=== PATIENT | female | born 1960 | race Caucasian/White ===

== ENCOUNTER 2019-07-17 10:34 | Outpatient (CLI) | payer BC, MEDICARE ==
--- NOTE | 2019-07-17 15:15 | NM ---
WHOLE BODY BONE SCAN: HISTORY: History of hepatocellular carcinoma RADIOPHARMACEUTICAL: 30.1 mCi technetium 99m-MDP injected intravenously COMPARISON: None CORRELATION: None FINDINGS: There is an obliquely oriented linear area of increased uptake seen involving the right proximal lorelei shavon. There is degenerative activity seen at the sternoclavicular joints, AC joints and feet. IMPRESSION: Obliquely oriented linear region of activity involving the proximal right humerus is susp icious for possible underlying right proximal humerus fracture or metastatic lesion. Dedicated radiographs of the right shoulder are recommended for additional characterization.
== END 2019-07-17 10:35 | disposition home or self-care (01) ==
LOC: NM 10:34
PROVIDERS: ATTEND Internal Medicine Gastroenterology
DX: C22.0 Liver cell carcinoma (principal); M89.8X9 Other specified disorders of bone, unspecified site; B16.2 Acute hepatitis B without delta-agent with hepatic coma; K74.60 Unspecified cirrhosis of liver; M54.9 Dorsalgia, unspecified; M19.90 Unspecified osteoarthritis, unspecified site
CPT/HCPCS: 78306; A9503

== ENCOUNTER 2019-07-21 10:08 | Outpatient (CLI) | payer BC, MEDICARE ==
--- NOTE | 2019-07-21 10:44 | RAD ---
XR Shoulder Rt 3 View STANDARD: 07/21/2019 12:00 AM CLINICAL INDICATION: History of right shoulder myalgia. COMPARISON: None. FINDINGS: Bones: No acute fracture. Glenohumeral joint: Normal alignment. AC joint: There is mild AC joint osteoarthrosis. Visualized lung: Clear. Soft tissues: Within normal limits. IMPRESSION: No acute osseous abnormality.
== END 2019-07-21 10:09 | disposition home or self-care (01) ==
LOC: BICRAD 10:08
PROVIDERS: ATTEND Internal Medicine Gastroenterology
DX: M79.10 Myalgia, unspecified site (principal)

== ENCOUNTER 2019-10-13 07:23 | Outpatient (CLI) | payer MEDICARE, BC ==
--- NOTE | 2019-10-13 09:11 | MRI ---
EXAM: MRI of the abdomen without and with contrast COMPARISON: 06/10/2017, 12/27/2016 HISTORY: Cirrhosis with 2 lesions seen in the liver on prior examination TECHNIQUE: Multiplanar multi sequence MR images were taken of the abdomen without and with IV contras t. FINDINGS: Liver: The liver is nodular consistent with cirrhosis. No focal liver lesions are seen. The previousl y seen 2 lesions are no longer visible and have likely resolved. No abnormal enhancement. No loss of signal is seen on the out of phase images. Mild central intrahepatic biliary dilatation is seen. T here is a recanalized periumbilical vein. Gallbladder: Removed Common bile duct: Prominent measuring 10 mm which is likely a reservoir effect from prior cholecystec jose juan. Adrenal glands: Unremarkable. Kidneys: No hydronephrosis or focal renal lesions. No abnormal areas of enhancement. Spleen: Unremarkable. Pancreas: Unremarkable. No abnormal enhancement. Retroperitoneum: No enlarged lymph nodes Bones: No marrow signal abnormality. IMPRESSION: 1. Cirrhosis with sequela of portal hypertension 2. No suspicious liver lesions identified
[2019-10-13] MEDS ORDERED: Magnevist 469MG/ML 20 ML VIAL ONE (14:26)
== END 2019-10-13 07:24 | disposition home or self-care (01) ==
LOC: BICMRI 07:23
PROVIDERS: ATTEND Internal Medicine Gastroenterology
DX: K74.60 Unspecified cirrhosis of liver (principal); B18.2 Chronic viral hepatitis C; C22.0 Liver cell carcinoma; R93.89 Abnormal findings on diagnostic imaging of other specified body structures; R14.0 Abdominal distension (gaseous); R77.2 Abnormality of alphafetoprotein; M89.8X9 Other specified disorders of bone, unspecified site; M54.9 Dorsalgia, unspecified; G89.29 Other chronic pain; R10.13 Epigastric pain; R10.32 Left lower quadrant pain; R41.0 Disorientation, unspecified; K59.09 Other constipation; M19.90 Unspecified osteoarthritis, unspecified site; K57.30 Diverticulosis of large intestine without perforation or abscess without bleeding; R13.10 Dysphagia, unspecified; R74.8 Abnormal levels of other serum enzymes; R53.83 Other fatigue; Z81.1 Family history of alcohol abuse and dependence; K76.6 Portal hypertension
CPT/HCPCS: 74183; 82565; A9579

== ENCOUNTER 2020-05-05 07:46 | Outpatient (CLI) | payer MEDICARE, BC ==
[2020-05-05] MEDS ORDERED: Magnevist 469MG/ML 20 ML VIAL ONE (13:49)
--- NOTE | 2020-05-05 14:17 | MRI ---
MRI ABDOMEN WITH AND WITHOUT IV CONTRAST: 05/05/20 HISTORY: Cirrhosis of the liver. Left lower quadrant pain. Liver cancer diagnosed in 2017. Hepatitis C and hep atitis D. Status post cholecystectomy. COMPARISON: 10/13/19 and 06/05/19. FINDINGS: Nodular appearance of the liver consistent with cirrhosis is again seen. The previously noted enhanci ng masses in hepatic VIII (about 9 mm) and in hepatic segment (approximately 12 mm) on the previou s exam are not satisfactorily visualized on the current exam. These are likely due to imaging during the different phases of IV contrast administration. A good arterial enhancing sequence is not noted. No definite new lesions however, identified. The patient is post cholecystectomy with prominent common bile duct measuring up to 12 mm likely due to reservoir effect from previous cholecystectomy. The kidneys, spleen, pancreas and adrenal glands a ppear normal. No free fluid or lymphadenopathy is seen. The aorta is of normal caliber. The bone yessi ow signal is normal. Portal vein is patent. The splenic vein is enlarged. There is recanalization of the umbilical vein. IMPRESSION: Limited exam. No definite new lesions are seen in the liver. POS: [facility]
== END 2020-05-05 07:47 | disposition home or self-care (01) ==
LOC: BICMRI 07:46
PROVIDERS: ATTEND Internal Medicine Gastroenterology
DX: K74.60 Unspecified cirrhosis of liver (principal); C22.0 Liver cell carcinoma; R14.0 Abdominal distension (gaseous); R10.9 Unspecified abdominal pain; R93.89 Abnormal findings on diagnostic imaging of other specified body structures; M89.8X9 Other specified disorders of bone, unspecified site; R10.13 Epigastric pain; R10.32 Left lower quadrant pain
CPT/HCPCS: 74183; 82565; A9579

== ENCOUNTER 2020-12-19 07:14 | Outpatient (CLI) | payer MEDICARE, BC ==
[2020-12-19] MEDS ORDERED: Magnevist 469MG/ML 20 ML VIAL ONE (11:09)
== END 2020-12-19 07:15 | disposition home or self-care (01) ==
LOC: BICMRI 07:14
PROVIDERS: ATTEND Internal Medicine Gastroenterology
DX: K74.60 Unspecified cirrhosis of liver (principal); R93.89 Abnormal findings on diagnostic imaging of other specified body structures; K76.6 Portal hypertension
CPT/HCPCS: 74183; A9579

== ENCOUNTER 2021-06-05 15:17 | Emergency (ER) | payer MEDICARE, BC ==
[2021-06-05 16:19] LABS: #Eosinphils 0.1 thou/uL (0.0-0.7); #Lymphocytes 1.4 thou/uL (1.20-3.40); #Monocytes 0.6 thou/uL (0.11-0.59); #Neutrophils 4.1 thou/uL (1.40-6.50); %Basophils 0.2 % (0.0-1.0); %Eosinophils 1.2 % (0.0-10.0); %Lymphocytes 22.8 % (21.0-51.0); %Monocytes 9.7 % (0.0-10.0); %Neutrophils 66.2 % (42.0-75.0); Hemoglobin 16.6 g/dL (12.0-16.0); Mean Corpuscular HGB CONC 34.4 g/dL (32.0-36.0); Mean Corpuscular Hemoglobin 32.3 pg (27.0-31.0); Mean Corpuscular Volume 93.9 fL (78.0-98.0); Mean Platelet Volume 9.8 fL (7.4-10.4); Platelet Count 92 thou/uL (130-400); RBC Distribution Width 11.5 % (11.5-14.5); Red Blood Cell (RBC) Count 5.14 mill/uL (4.20-5.40); White Blood Cell (WBC) Count 6.1 thou/uL (4.8-10.8)
[2021-06-05 16:36] LABS: ALT (SGPT) 62 U/L (8-55); AST (SGOT) 75 U/L (5-34); Albumin 4.1 g/dL (3.4-4.8); Alkaline Phosphatase 100 U/L (40-110); Anion Gap 13 mmol/L (10-20); BUN (Urea Nitrogen) 10 mg/dL (9.8-20.1); Calc. Creatinine Clearance 0 mL/min (70-130); Carbon Dioxide 27 mmol/L (23-31); Chloride 98 mmol/L (98-107); Globulin 3.1 g/dL (2.4-3.5); Glucose 93 mg/dL (80-115); Lipase 27 U/L (8-78); Potassium 4.3 mmol/L (3.5-5.1); Protein, Total 7.2 g/dL (5.8-8.1); Sodium 134 mmol/L (136-145)
[2021-06-05] MEDS ORDERED: Ondansetron PF 4 MG/2 ML Vial ONE (16:58)
[2021-06-05] MEDS ORDERED: Aspirin 81 mg Enteric Coated Tablet ONE (18:55)
== END 2021-06-05 20:23 | disposition home or self-care (01) ==
LOC: ERS 15:17
DX: E86.0 Dehydration (principal); R11.2 Nausea with vomiting, unspecified; R00.2 Palpitations; G93.40 Encephalopathy, unspecified; K74.60 Unspecified cirrhosis of liver; Z87.891 Personal history of nicotine dependence
CPT/HCPCS: 36415; 80053; 83690; 84484; 85025; 93005; 96374; J2405

== ENCOUNTER 2021-08-23 09:27 | Outpatient (CLI) | payer MEDICARE, BC | END 2021-08-23 09:28 | disposition home or self-care (01) | LOC: BICMRI 09:27 | PROVIDERS: ATTEND Internal Medicine Gastroenterology | DX: K57.30 Diverticulosis of large intestine without perforation or abscess without bleeding (principal); K52.9 Noninfective gastroenteritis and colitis, unspecified; R14.0 Abdominal distension (gaseous); M89.8X9 Other specified disorders of bone, unspecified site; M54.9 Dorsalgia, unspecified; K74.60 Unspecified cirrhosis of liver; R93.89 Abnormal findings on diagnostic imaging of other specified body structures; R77.2 Abnormality of alphafetoprotein; G89.29 Other chronic pain; R10.32 Left lower quadrant pain; R10.13 Epigastric pain; R41.0 Disorientation, unspecified; K59.00 Constipation, unspecified; M19.90 Unspecified osteoarthritis, unspecified site; R13.10 Dysphagia, unspecified; R74.8 Abnormal levels of other serum enzymes; R53.83 Other fatigue; K31.89 Other diseases of stomach and duodenum; K29.50 Unspecified chronic gastritis without bleeding; K21.9 Gastro-esophageal reflux disease without esophagitis; R51.9 Headache, unspecified; K64.8 Other hemorrhoids; K72.90 Hepatic failure, unspecified without coma; R76.8 Other specified abnormal immunological findings in serum; B18.2 Chronic viral hepatitis C; C22.0 Liver cell carcinoma; R63.0 Anorexia; M54.6 Pain in thoracic spine; R53.81 Other malaise; M62.81 Muscle weakness (generalized); R11.2 Nausea with vomiting, unspecified; R79.89 Other specified abnormal findings of blood chemistry; R79.1 Abnormal coagulation profile; R20.8 Other disturbances of skin sensation; D69.6 Thrombocytopenia, unspecified; R63.4 Abnormal weight loss; R16.0 Hepatomegaly, not elsewhere classified; I81 Portal vein thrombosis; K76.6 Portal hypertension; Z81.1 Family history of alcohol abuse and dependence | CPT/HCPCS: 74183; 82565 ==

== ENCOUNTER 2022-01-25 08:53 | Outpatient (CLI) | payer MEDICARE, BC | END 2022-01-25 08:54 | disposition home or self-care (01) | LOC: MRI 08:53 | PROVIDERS: ATTEND Physician Assistant Medical | DX: K74.60 Unspecified cirrhosis of liver (principal); R10.9 Unspecified abdominal pain; C22.0 Liver cell carcinoma; M62.81 Muscle weakness (generalized); K76.9 Liver disease, unspecified | CPT/HCPCS: 74183; 82565 ==

== ENCOUNTER 2022-03-10 11:32 | Inpatient (IN) | payer MEDICARE, BC ==
[2022-03-10 12:15] LABS: Bacteria/HPF None Seen HPF (None Seen); Bilirubin Negative (Negative); Blood, Urine Negative (Negative); Clarity Turbid (Clear); Glucose, Urine (Dipstick) Normal (Negative); Ketone, Urine 40 mg/dL (Negative); Leukocyte Negative Leu/uL (Negative); Nitrite Negative (Negative); Protein, Urine (Dipstick) 50 mg/dL (Neg-Trace); RBC/HPF 0-3 HPF (0-3); Specific Gravity, Urine 1.031 (1.002-1.036); Squamous Epithelial 0-3 HPF (0-3); Urobilinogen Normal mg/dL (Less than 2); WBC/HPF 0-3 HPF (0-3); pH, Urine 5.5 (5.0-9.0)
[2022-03-10 12:36] LABS: #Lymphocytes 0.6 thou/uL (1.20-3.40); #Monocytes 0.3 thou/uL (0.11-0.59); #Neutrophils 4.4 thou/uL (1.40-6.50); %Basophils 0.2 % (0.0-1.0); %Eosinophils 0.5 % (0.0-10.0); %Lymphocytes 11.5 % (21.0-51.0); %Monocytes 5.2 % (0.0-10.0); %Neutrophils 82.6 % (42.0-75.0); Hemoglobin 14.7 g/dL (12.0-16.0); Mean Corpuscular Hemoglobin 33.2 pg (27.0-31.0); Platelet Count 74 thou/uL (130-400); RBC Distribution Width 12.5 % (11.5-14.5); Red Blood Cell (RBC) Count 4.41 mill/uL (4.20-5.40); White Blood Cell (WBC) Count 5.3 thou/uL (4.8-10.8)
[2022-03-10 12:53] LABS: ALT (SGPT) 70 U/L (8-55); AST (SGOT) 132 U/L (5-34); Albumin 3.8 g/dL (3.4-4.8); Alkaline Phosphatase 252 U/L (40-110); Anion Gap 17 mmol/L (10-20); BUN (Urea Nitrogen) 16 mg/dL (9.8-20.1); Bilirubin, Total 1.7 mg/dL (0.2-1.2); Calc. Creatinine Clearance 0 mL/min (70-130); Calcium 9.6 mg/dL (7.8-10.44); Carbon Dioxide 23 mmol/L (23-31); Chloride 103 mmol/L (98-107); Globulin 2.9 g/dL (2.4-3.5); Glucose 103 mg/dL (80-115); Lipase 27 U/L (8-78); Potassium 4.5 mmol/L (3.5-5.1); Protein, Total 6.7 g/dL (5.8-8.1); Sodium 138 mmol/L (136-145)
[2022-03-10] MEDS ORDERED: Morphine 4 MG/ML VIAL ONE ×2 (13:17→14:32)
[2022-03-10] MEDS ORDERED: Iopamidol-370 76% 500 ML 1 ML ONE (13:24)
[2022-03-10] MEDS ORDERED: Promethazine HCl 25 MG in Sodium Chloride 0.9% 50 ML IVPB SCH (15:00)
[2022-03-10] MEDS ORDERED: HYDROmorphone 0.5 MG/0.5 ML SYRINGE ONE ×2 (15:39→17:46)
[2022-03-10] MEDS ORDERED: Ondansetron ODT 4 MG TAB SL PRN (19:45)
[2022-03-10] MEDS ORDERED: Ondansetron PF 4 MG/2 ML Vial IVP PRN (19:45)
[2022-03-10] MEDS ORDERED: Guaifenesin DM 100-10/5 ML UDCUP PO PRN (20:06)
[2022-03-10] MEDS ORDERED: Fentanyl 100 MCG/2 ML VIAL SLOW IVP PRN (20:08)
[2022-03-10] MEDS ORDERED: Fentanyl 100 MCG/2 ML VIAL SLOW IVP SCH (20:15)
[2022-03-10] MEDS: Famotidine 20 MG TAB PO SCH (23:39)
[2022-03-10] MEDS: Sodium Chloride 0.9% 1,000 ML IV SCH (23:58)
[2022-03-11] MEDS: fentaNYL 100 mcg/hour Patch TD SCH (00:02)
[2022-03-11 00:32] VITALS: BMI 24.0
[2022-03-11 05:41] LABS: #Eosinphils 0.1 thou/uL (0.0-0.7); #Lymphocytes 0.8 thou/uL (1.20-3.40); #Monocytes 0.5 thou/uL (0.11-0.59); #Neutrophils 3.2 thou/uL (1.40-6.50); %Basophils 0.3 % (0.0-1.0); %Eosinophils 1.9 % (0.0-10.0); %Lymphocytes 17.6 % (21.0-51.0); %Monocytes 11.2 % (0.0-10.0); Hemoglobin 13.6 g/dL (12.0-16.0); Mean Corpuscular HGB CONC 32.6 g/dL (32.0-36.0); Mean Corpuscular Hemoglobin 33.1 pg (27.0-31.0); Mean Platelet Volume 10.8 fL (7.4-10.4); Platelet Count 70 thou/uL (130-400); RBC Distribution Width 12.5 % (11.5-14.5); Red Blood Cell (RBC) Count 4.12 mill/uL (4.20-5.40); White Blood Cell (WBC) Count 4.7 thou/uL (4.8-10.8)
[2022-03-11] MEDS: HYDROmorphone 0.5 MG/0.5 ML SYRINGE SLOW IVP PRN ×4 (05:52→23:14)
[2022-03-11 05:57] LABS: ALT (SGPT) 61 U/L (8-55); AST (SGOT) 112 U/L (5-34); Albumin 3.3 g/dL (3.4-4.8); Alkaline Phosphatase 214 U/L (40-110); Anion Gap 13 mmol/L (10-20); BUN (Urea Nitrogen) 15 mg/dL (9.8-20.1); Bilirubin, Total 1.5 mg/dL (0.2-1.2); Calc. Creatinine Clearance 77 mL/min (70-130); Calcium 9.3 mg/dL (7.8-10.44); Carbon Dioxide 26 mmol/L (23-31); Chloride 105 mmol/L (98-107); Globulin 2.8 g/dL (2.4-3.5); Glucose 90 mg/dL (80-115); Potassium 4.5 mmol/L (3.5-5.1); Protein, Total 6.1 g/dL (5.8-8.1); Sodium 139 mmol/L (136-145)
[2022-03-11] MEDS: Enoxaparin Sodium 30 MG/0.3 ML SYRINGE SC SCH (09:53)
[2022-03-11] MEDS: Sodium Chloride 0.9% 1,000 ML IV SCH ×2 (09:54→13:53)
[2022-03-11] MEDS: Famotidine 20 MG TAB PO SCH ×2 (09:54→22:12)
[2022-03-12] MEDS: Sodium Chloride 0.9% 1,000 ML IV SCH ×2 (03:14→05:20)
[2022-03-12] MEDS: HYDROmorphone 0.5 MG/0.5 ML SYRINGE SLOW IVP PRN ×2 (03:15→08:00)
[2022-03-12 05:41] LABS: #Eosinphils 0.1 thou/uL (0.0-0.7); #Lymphocytes 0.9 thou/uL (1.20-3.40); #Monocytes 0.4 thou/uL (0.11-0.59); #Neutrophils 2.7 thou/uL (1.40-6.50); %Basophils 0.4 % (0.0-1.0); %Eosinophils 2.8 % (0.0-10.0); %Lymphocytes 21.7 % (21.0-51.0); %Monocytes 9.9 % (0.0-10.0); %Neutrophils 65.2 % (42.0-75.0); Hemoglobin 14.5 g/dL (12.0-16.0); Mean Corpuscular HGB CONC 31.9 g/dL (32.0-36.0); Mean Corpuscular Hemoglobin 32.8 pg (27.0-31.0); Mean Platelet Volume 10.7 fL (7.4-10.4); Platelet Count 73 thou/uL (130-400); RBC Distribution Width 12.6 % (11.5-14.5); Red Blood Cell (RBC) Count 4.41 mill/uL (4.20-5.40); White Blood Cell (WBC) Count 4.2 thou/uL (4.8-10.8)
[2022-03-12 06:01] LABS: ALT (SGPT) 63 U/L (8-55); AST (SGOT) 119 U/L (5-34); Albumin 3.3 g/dL (3.4-4.8); Alkaline Phosphatase 232 U/L (40-110); Anion Gap 15 mmol/L (10-20); BUN (Urea Nitrogen) 11 mg/dL (9.8-20.1); Bilirubin, Total 1.2 mg/dL (0.2-1.2); Calc. Creatinine Clearance 87 mL/min (70-130); Calcium 8.8 mg/dL (7.8-10.44); Carbon Dioxide 22 mmol/L (23-31); Chloride 105 mmol/L (98-107); Globulin 2.8 g/dL (2.4-3.5); Glucose 83 mg/dL (80-115); Magnesium 1.5 mg/dL (1.6-2.6); Potassium 3.9 mmol/L (3.5-5.1); Protein, Total 6.1 g/dL (5.8-8.1); Sodium 138 mmol/L (136-145)
[2022-03-12] MEDS ORDERED: Ondansetron ODT 4 MG TAB PO PRN (08:41)
[2022-03-12] MEDS ORDERED: [UNRECOGNIZED DRUG - OTHER] PO SCH (09:00)
[2022-03-12] MEDS ORDERED: Promethazine 25 MG TAB PO PRN (09:00)
[2022-03-12] MEDS: Famotidine 20 MG TAB PO SCH ×2 (10:58→20:18)
[2022-03-12] MEDS: Enoxaparin Sodium 30 MG/0.3 ML SYRINGE SC SCH (10:58)
[2022-03-12] MEDS: Furosemide 20 MG TAB PO SCH (10:59)
[2022-03-12] MEDS: Spironolactone 100 MG TAB PO SCH (11:00)
[2022-03-12] MEDS: Gabapentin 300 MG CAP PO SCH ×4 (12:14→20:18)
[2022-03-12] MEDS: Rifaximin 550 MG TAB PO SCH ×2 (14:47→20:18)
[2022-03-12] MEDS: HYDROmorphone 2 MG TAB PO PRN ×2 (15:11→20:19)
[2022-03-12] MEDS: Promethazine 25 MG TAB PO PRN (20:19)
[2022-03-13] MEDS: Sodium Chloride 0.9% 1,000 ML IV SCH ×2 (02:51→12:30)
[2022-03-13 05:27] LABS: #Eosinphils 0.1 thou/uL (0.0-0.7); #Lymphocytes 0.8 thou/uL (1.20-3.40); #Monocytes 0.4 thou/uL (0.11-0.59); #Neutrophils 2.4 thou/uL (1.40-6.50); %Basophils 0.8 % (0.0-1.0); %Lymphocytes 21.2 % (21.0-51.0); %Monocytes 11.6 % (0.0-10.0); %Neutrophils 63.5 % (42.0-75.0); Hemoglobin 13.6 g/dL (12.0-16.0); Mean Corpuscular HGB CONC 32.7 g/dL (32.0-36.0); Mean Corpuscular Hemoglobin 33.3 pg (27.0-31.0); Mean Platelet Volume 10.8 fL (7.4-10.4); Platelet Count 73 thou/uL (130-400); RBC Distribution Width 12.6 % (11.5-14.5); Red Blood Cell (RBC) Count 4.06 mill/uL (4.20-5.40); White Blood Cell (WBC) Count 3.8 thou/uL (4.8-10.8)
[2022-03-13] MEDS: Promethazine 25 MG TAB PO PRN ×3 (05:34→20:34)
[2022-03-13] MEDS: Gabapentin 300 MG CAP PO SCH ×4 (09:16→20:33)
[2022-03-13] MEDS: Rifaximin 550 MG TAB PO SCH ×2 (09:16→20:34)
[2022-03-13] MEDS: Enoxaparin Sodium 40 MG/0.4 ML SYRINGE SC SCH (09:18)
[2022-03-13] MEDS: Furosemide 20 MG TAB PO SCH (09:18)
[2022-03-13] MEDS: Cholecalciferol 1,000 UNITS (25 MCG) TAB PO SCH (09:18)
[2022-03-13] MEDS: HYDROmorphone 2 MG TAB PO PRN ×3 (09:19→20:32)
[2022-03-13] MEDS ORDERED: traMADol HCl 50 MG TAB PO PRN (12:10)
[2022-03-13] MEDS: fentaNYL 100 mcg/hour Patch TD SCH (20:34)
[2022-03-14] MEDS: Sodium Chloride 0.9% 1,000 ML IV SCH (05:09)
[2022-03-14 08:20] VITALS: BP 111/57; TEMP 97.9
[2022-03-14] MEDS: Gabapentin 300 MG CAP PO SCH (10:09)
[2022-03-14] MEDS: Spironolactone 100 MG TAB PO SCH (10:09)
[2022-03-14] MEDS: Cholecalciferol 1,000 UNITS (25 MCG) TAB PO SCH (10:10)
[2022-03-14] MEDS: Furosemide 20 MG TAB PO SCH (10:12)
[2022-03-14] MEDS: Rifaximin 550 MG TAB PO SCH (10:12)
[2022-03-14] MEDS: Enoxaparin Sodium 40 MG/0.4 ML SYRINGE SC SCH (10:13)
[2022-03-14] MEDS: HYDROmorphone 2 MG TAB PO PRN (10:15)
[2022-03-14] MEDS: Promethazine 25 MG TAB PO PRN (10:15)
== END 2022-03-14 11:00 | disposition home or self-care (01) | DRG 435 ==
LOC: ERS 11:32 → MSONC 19:18 → OBSVTOIN 03-12 12:21
PROVIDERS: ADMIT Hospitalist; ATTEND Hospitalist
DX: C22.0 Liver cell carcinoma (principal); I82.0 Budd-Chiari syndrome; Z20.822 Contact with and (suspected) exposure to COVID-19; K74.60 Unspecified cirrhosis of liver; G89.3 Neoplasm related pain (acute) (chronic); D69.6 Thrombocytopenia, unspecified; E86.0 Dehydration; Z88.5 Allergy status to narcotic agent; Z86.19 Personal history of other infectious and parasitic diseases; Z79.899 Other long term (current) drug therapy; Z90.49 Acquired absence of other specified parts of digestive tract; Z98.890 Other specified postprocedural states; Z87.891 Personal history of nicotine dependence
CPT/HCPCS: 36415; 74177; 76705; 80053; 81003; 81015; 82274; 83605; 83690; 83735; 85025; 93005; 94760; 96361; 96365; 96375; 96376; G0378; J1170; J2270; J2550; J3010; J7050; Q0162; Q0169; U0003; U0005

== ENCOUNTER 2022-03-14 10:57 | Outpatient (CLI) | payer MEDICARE, BC | END 2022-03-14 10:58 | disposition home or self-care (01) | LOC: NM 10:57 | PROVIDERS: ATTEND Physician Assistant Medical | DX: C22.0 Liver cell carcinoma (principal); R77.2 Abnormality of alphafetoprotein; R93.89 Abnormal findings on diagnostic imaging of other specified body structures; R16.1 Splenomegaly, not elsewhere classified; K76.0 Fatty (change of) liver, not elsewhere classified; J90 Pleural effusion, not elsewhere classified; R91.8 Other nonspecific abnormal finding of lung field; J98.11 Atelectasis | CPT/HCPCS: 71250; 78306; A9503 ==

== ENCOUNTER 2022-05-03 12:15 | Inpatient (IN) | payer MEDICARE, BC ==
[~2022-05-03 12:15] MED LIST: Iopamidol-370 76% 500 ML 1 ML ONE
[2022-05-03] MEDS ORDERED: Morphine 4 MG/ML VIAL ONE ×2 (12:33→14:27)
[2022-05-03 13:03] LABS: #Eosinphils 0.1 thou/uL (0.0-0.7); #Lymphocytes 0.7 thou/uL (1.20-3.40); #Monocytes 0.9 thou/uL (0.11-0.59); #Neutrophils 6.7 thou/uL (1.40-6.50); %Basophils 0.2 % (0.0-1.0); %Eosinophils 0.8 % (0.0-10.0); %Lymphocytes 8.7 % (21.0-51.0); %Monocytes 10.5 % (0.0-10.0); %Neutrophils 79.8 % (42.0-75.0); Hemoglobin 14.8 g/dL (12.0-16.0); Mean Corpuscular HGB CONC 33.4 g/dL (32.0-36.0); Mean Corpuscular Hemoglobin 33.9 pg (27.0-31.0); Mean Platelet Volume 9.5 fL (7.4-10.4); Platelet Count 128 thou/uL (130-400); RBC Distribution Width 13.2 % (11.5-14.5); Red Blood Cell (RBC) Count 4.36 mill/uL (4.20-5.40); White Blood Cell (WBC) Count 8.4 thou/uL (4.8-10.8)
[2022-05-03] MEDS ORDERED: Ondansetron PF 4 MG/2 ML Vial ONE (14:27)
[2022-05-03 15:24] LABS: ALT (SGPT) 114 U/L (8-55); AST (SGOT) 187 U/L (5-34); Albumin 2.9 g/dL (3.4-4.8); Alkaline Phosphatase 331 U/L (40-110); Anion Gap 15 mmol/L (10-20); BUN (Urea Nitrogen) 13 mg/dL (9.8-20.1); Bilirubin, Total 1.8 mg/dL (0.2-1.2); Calc. Creatinine Clearance 0 mL/min (70-130); Calcium 8.5 mg/dL (7.8-10.44); Carbon Dioxide 24 mmol/L (23-31); Chloride 98 mmol/L (98-107); Estimated GFR 95; Globulin 3.2 g/dL (2.4-3.5); Glucose 103 mg/dL (80-115); Lipase 22 U/L (8-78); Potassium 3.8 mmol/L (3.5-5.1); Protein, Total 6.1 g/dL (5.8-8.1); Sodium 133 mmol/L (136-145)
[2022-05-03] MEDS ORDERED: Pantoprazole 40 MG VIAL ONE (16:39)
[2022-05-03] MEDS ORDERED: Senokot S 8.6-50 MG TAB PO PRN (16:43)
[2022-05-03] MEDS ORDERED: Acetaminophen 325 MG TAB PO PRN (16:43)
[2022-05-03] MEDS ORDERED: Sodium Chloride 0.9% 1,000 ML IV SCH (17:00)
[2022-05-03] MEDS ORDERED: Octreotide Acetate 1,250 MCG in Sodium Chloride 0.9% 250 ML 250 ML IVPB SCH (17:15)
[2022-05-03] MEDS ORDERED: HYDROmorphone 0.5 MG/0.5 ML SYRINGE SLOW IVP SCH (18:30)
[2022-05-03] MEDS: Pantoprazole 40 MG VIAL IVP SCH (20:37)
[2022-05-04 08:07] LABS: #Eosinphils 0.1 thou/uL (0.0-0.7); #Lymphocytes 0.3 thou/uL (1.20-3.40); #Monocytes 0.6 thou/uL (0.11-0.59); #Neutrophils 4.8 thou/uL (1.40-6.50); %Basophils 0.3 % (0.0-1.0); %Eosinophils 2.2 % (0.0-10.0); %Lymphocytes 5.6 % (21.0-51.0); %Monocytes 10.8 % (0.0-10.0); %Neutrophils 81.1 % (42.0-75.0); Hemoglobin 13.8 g/dL (12.0-16.0); Mean Corpuscular HGB CONC 32.8 g/dL (32.0-36.0); Mean Corpuscular Hemoglobin 33.7 pg (27.0-31.0); Mean Platelet Volume 9.1 fL (7.4-10.4); Platelet Count 131 thou/uL (130-400); Red Blood Cell (RBC) Count 4.09 mill/uL (4.20-5.40); White Blood Cell (WBC) Count 5.9 thou/uL (4.8-10.8)
[2022-05-04 08:24] LABS: INR-International Normal Ratio 1.3; PTT 29.1 sec (22.9-36.1); Prothrombin Time 16.1 sec (12.0-14.7)
[2022-05-04] MEDS ORDERED: Morphine 2 MG/ML VIAL SLOW IVP PRN ×2 (08:24→15:37)
[2022-05-04 08:26] LABS: ALT (SGPT) 108 U/L (8-55); AST (SGOT) 176 U/L (5-34); Albumin 2.8 g/dL (3.4-4.8); Alkaline Phosphatase 330 U/L (40-110); Anion Gap 13 mmol/L (10-20); BUN (Urea Nitrogen) 13 mg/dL (9.8-20.1); Bilirubin, Total 1.5 mg/dL (0.2-1.2); Calc. Creatinine Clearance 66 mL/min (70-130); Calcium 8.2 mg/dL (7.8-10.44); Carbon Dioxide 26 mmol/L (23-31); Chloride 100 mmol/L (98-107); Estimated GFR 89; Globulin 3.2 g/dL (2.4-3.5); Glucose 113 mg/dL (80-115); Potassium 3.9 mmol/L (3.5-5.1); Sodium 135 mmol/L (136-145)
[2022-05-04] MEDS: Pantoprazole 40 MG VIAL IVP SCH (08:37)
[2022-05-04] MEDS ORDERED: Spironolactone 25 MG TAB PO SCH (09:00)
[2022-05-04] MEDS ORDERED: Spironolactone 100 MG TAB PO SCH (09:00)
[2022-05-04] MEDS: Gabapentin 300 MG CAP PO SCH ×2 (09:16→20:03)
[2022-05-04] MEDS: Rifaximin 550 MG TAB PO SCH ×2 (09:16→20:03)
[2022-05-04] MEDS ORDERED: Lidocaine 1% PF 5 ML VIAL ONE (12:40)
[2022-05-04] MEDS ORDERED: PROPOFOL 200 MG/20 ML VIAL ONE (12:40)
[2022-05-04] MEDS ORDERED: Sodium Bicarbonate 2.5 MEQ/5 ML VIAL ONE (14:48)
[2022-05-04] MEDS ORDERED: Lidocaine 1% MPF 2 ML VIAL ONE ×3 (14:48→15:23)
[2022-05-04] MEDS: Morphine 4 MG/ML VIAL SLOW IVP PRN (16:24)
[2022-05-04 17:00] LABS: RBC Count-Automated (BF) 673 /cu.mm; WBC/Nucleated-Auto (BF) 137 /cu.mm
[2022-05-04] MEDS ORDERED: Ondansetron ODT 4 MG TAB PO PRN (17:00)
[2022-05-04] MEDS ORDERED: Acetaminophen 325 MG TAB PO PRN (17:04)
[2022-05-04 17:11] LABS: BF Color Yellow; Body Fluid Source Ascites Body Fluid; Clarity Hazy (Clear); Tube # EDTA
[2022-05-04 17:14] LABS: BF Segmented Neutrophils 13 %; Cell Count Non Hematic 63 %; Lymphocytes 24 %
[2022-05-04] MEDS: Venlafaxine XR 37.5 MG CAP PO SCH (20:03)
[2022-05-04] MEDS: Magnesium Oxide 250 MG TAB PO SCH (20:03)
[2022-05-05 07:07] LABS: ALT (SGPT) 95 U/L (8-55); AST (SGOT) 165 U/L (5-34); Albumin 2.6 g/dL (3.4-4.8); Alkaline Phosphatase 310 U/L (40-110); Anion Gap 13 mmol/L (10-20); BUN (Urea Nitrogen) 12 mg/dL (9.8-20.1); Bilirubin, Total 1.6 mg/dL (0.2-1.2); Calc. Creatinine Clearance 67 mL/min (70-130); Carbon Dioxide 25 mmol/L (23-31); Chloride 100 mmol/L (98-107); Estimated GFR 91; Globulin 2.9 g/dL (2.4-3.5); Glucose 120 mg/dL (80-115); Potassium 4.3 mmol/L (3.5-5.1); Protein, Total 5.5 g/dL (5.8-8.1); Sodium 134 mmol/L (136-145)
[2022-05-05] MEDS: Morphine 4 MG/ML VIAL SLOW IVP PRN ×2 (08:47→13:20)
[2022-05-05] MEDS: Gabapentin 300 MG CAP PO SCH ×2 (08:47→20:44)
[2022-05-05] MEDS: Magnesium Oxide 250 MG TAB PO SCH ×2 (08:48→20:44)
[2022-05-05] MEDS: Furosemide 20 MG TAB PO SCH (08:48)
[2022-05-05] MEDS: Rifaximin 550 MG TAB PO SCH ×2 (08:48→20:44)
[2022-05-05] MEDS: HYDROmorphone 2 MG TAB PO PRN (17:32)
[2022-05-05] MEDS: Venlafaxine XR 37.5 MG CAP PO SCH (20:44)
[2022-05-06 06:40] LABS: ALT (SGPT) 98 U/L (8-55); AST (SGOT) 184 U/L (5-34); Albumin 2.6 g/dL (3.4-4.8); Alkaline Phosphatase 322 U/L (40-110); Anion Gap 11 mmol/L (10-20); BUN (Urea Nitrogen) 12 mg/dL (9.8-20.1); Bilirubin, Total 1.5 mg/dL (0.2-1.2); Calc. Creatinine Clearance 79 mL/min (70-130); Carbon Dioxide 26 mmol/L (23-31); Chloride 97 mmol/L (98-107); Estimated GFR 100; Glucose 112 mg/dL (80-115); Protein, Total 5.6 g/dL (5.8-8.1); Sodium 130 mmol/L (136-145)
[2022-05-06] MEDS: HYDROmorphone 2 MG TAB PO PRN ×2 (08:54→18:32)
[2022-05-06] MEDS: Furosemide 20 MG TAB PO SCH (08:55)
[2022-05-06] MEDS: Gabapentin 300 MG CAP PO SCH ×3 (08:55→20:11)
[2022-05-06] MEDS: Magnesium Oxide 250 MG TAB PO SCH ×2 (08:55→20:12)
[2022-05-06] MEDS: Rifaximin 550 MG TAB PO SCH ×2 (08:56→20:12)
[2022-05-06] MEDS: Morphine 4 MG/ML VIAL SLOW IVP PRN (12:45)
[2022-05-06] MEDS: Venlafaxine XR 37.5 MG CAP PO SCH (20:12)
[2022-05-07] MEDS: Morphine 4 MG/ML VIAL SLOW IVP PRN ×2 (01:59→21:06)
[2022-05-07] MEDS: Gabapentin 300 MG CAP PO SCH ×3 (10:20→20:56)
[2022-05-07] MEDS: Rifaximin 550 MG TAB PO SCH ×2 (10:20→20:55)
[2022-05-07] MEDS: Spironolactone 100 MG TAB PO SCH (10:21)
[2022-05-07] MEDS: Furosemide 20 MG TAB PO SCH (10:21)
[2022-05-07] MEDS: Magnesium Oxide 250 MG TAB PO SCH ×2 (10:21→20:56)
[2022-05-07] MEDS: HYDROmorphone 2 MG TAB PO PRN ×2 (10:35→18:20)
[2022-05-07] MEDS: Venlafaxine XR 37.5 MG CAP PO SCH (20:56)
[2022-05-08 06:10] LABS: Anion Gap 12 mmol/L (10-20); BUN (Urea Nitrogen) 11 mg/dL (9.8-20.1); Calc. Creatinine Clearance 79 mL/min (70-130); Carbon Dioxide 27 mmol/L (23-31); Chloride 96 mmol/L (98-107); Estimated GFR 100; Glucose 98 mg/dL (80-115); Potassium 3.8 mmol/L (3.5-5.1); Sodium 131 mmol/L (136-145)
[2022-05-08] MEDS: HYDROmorphone 2 MG TAB PO PRN ×2 (06:29→18:38)
[2022-05-08] MEDS: Rifaximin 550 MG TAB PO SCH ×2 (08:38→20:43)
[2022-05-08] MEDS: Furosemide 20 MG TAB PO SCH (08:40)
[2022-05-08] MEDS: Gabapentin 300 MG CAP PO SCH ×3 (08:40→20:43)
[2022-05-08] MEDS: Magnesium Oxide 250 MG TAB PO SCH ×2 (08:41→20:43)
[2022-05-08] MEDS: Morphine 4 MG/ML VIAL SLOW IVP PRN ×2 (11:15→20:43)
[2022-05-08] MEDS ORDERED: Electrolyte Replacement Protocol 1 EACH FS SCH (12:30)
[2022-05-08] MEDS: Hyoscyamine Sulfate SL 0.125 mg Tablet PO PRN (14:50)
[2022-05-08] MEDS: Venlafaxine XR 37.5 MG CAP PO SCH (20:43)
[2022-05-08] MEDS: Mirtazapine 15 MG TAB PO SCH (20:43)
[2022-05-09 06:33] LABS: ALT (SGPT) 101 U/L (8-55); AST (SGOT) 190 U/L (5-34); Albumin 2.6 g/dL (3.4-4.8); Alkaline Phosphatase 339 U/L (40-110); Anion Gap 13 mmol/L (10-20); BUN (Urea Nitrogen) 9 mg/dL (9.8-20.1); Bilirubin, Total 1.4 mg/dL (0.2-1.2); Calc. Creatinine Clearance 79 mL/min (70-130); Calcium 8.3 mg/dL (7.8-10.44); Carbon Dioxide 28 mmol/L (23-31); Chloride 94 mmol/L (98-107); Estimated GFR 100; Glucose 100 mg/dL (80-115); Magnesium 1.7 mg/dL (1.6-2.6); Phosphorus 2.1 mg/dL (2.3-4.7); Potassium 3.6 mmol/L (3.5-5.1); Protein, Total 5.6 g/dL (5.8-8.1); Sodium 131 mmol/L (136-145)
[2022-05-09 06:59] LABS: #Eosinphils 0.1 thou/uL (0.0-0.7); #Lymphocytes 0.5 thou/uL (1.20-3.40); #Monocytes 0.7 thou/uL (0.11-0.59); #Neutrophils 4.4 thou/uL (1.40-6.50); %Basophils 0.2 % (0.0-1.0); %Eosinophils 1.7 % (0.0-10.0); %Lymphocytes 8.1 % (21.0-51.0); %Monocytes 12.3 % (0.0-10.0); %Neutrophils 77.6 % (42.0-75.0); Hemoglobin 12.7 g/dL (12.0-16.0); Mean Corpuscular HGB CONC 33.3 g/dL (32.0-36.0); Mean Corpuscular Hemoglobin 33.7 pg (27.0-31.0); Mean Platelet Volume 8.6 fL (7.4-10.4); Platelet Count 110 thou/uL (130-400); Platelet Morphology Comment Appears Decreased; RBC Distribution Width 13.2 % (11.5-14.5); RBC Morphology Normal; Red Blood Cell (RBC) Count 3.78 mill/uL (4.20-5.40); White Blood Cell (WBC) Count 5.7 thou/uL (4.8-10.8)
[2022-05-09] MEDS ORDERED: Magnesium 2 GM/50 ML(in water) 2 GM in Premix Bag 1 BAG IVPB SCH (08:00)
[2022-05-09] MEDS: Morphine 4 MG/ML VIAL SLOW IVP PRN ×3 (09:00→20:49)
[2022-05-09] MEDS: Gabapentin 300 MG CAP PO SCH ×3 (09:01→20:50)
[2022-05-09] MEDS: Magnesium Oxide 250 MG TAB PO SCH ×2 (09:01→20:50)
[2022-05-09] MEDS: Rifaximin 550 MG TAB PO SCH ×2 (09:01→20:50)
[2022-05-09] MEDS: Furosemide 20 MG TAB PO SCH (09:01)
[2022-05-09] MEDS: Spironolactone 100 MG TAB PO SCH (09:01)
[2022-05-09] MEDS: HYDROmorphone 2 MG TAB PO PRN ×2 (15:17→23:28)
[2022-05-09] MEDS ORDERED: Iopamidol-370 76% 500 ML 1 ML ONE (15:27)
[2022-05-09] MEDS: Mirtazapine 15 MG TAB PO SCH (20:50)
[2022-05-09] MEDS: Venlafaxine XR 37.5 MG CAP PO SCH (20:50)
[2022-05-10] MEDS: Gabapentin 300 MG CAP PO SCH ×3 (08:00→21:58)
[2022-05-10] MEDS: HYDROmorphone 2 MG TAB PO PRN ×3 (08:01→22:11)
[2022-05-10] MEDS: Magnesium Oxide 250 MG TAB PO SCH ×2 (08:01→21:57)
[2022-05-10] MEDS: Rifaximin 550 MG TAB PO SCH ×2 (08:01→21:58)
[2022-05-10] MEDS: Furosemide 20 MG TAB PO SCH (08:03)
[2022-05-10] MEDS: Morphine 4 MG/ML VIAL SLOW IVP PRN (18:43)
[2022-05-10] MEDS: Mirtazapine 15 MG TAB PO SCH (21:58)
[2022-05-10] MEDS: Venlafaxine XR 37.5 MG CAP PO SCH (21:58)
[2022-05-11] MEDS: HYDROmorphone 2 MG TAB PO PRN ×3 (05:43→21:58)
[2022-05-11 05:48] LABS: #Eosinphils 0.1 thou/uL (0.0-0.7); #Lymphocytes 0.4 thou/uL (1.20-3.40); #Monocytes 0.7 thou/uL (0.11-0.59); #Neutrophils 4.6 thou/uL (1.40-6.50); %Basophils 0.2 % (0.0-1.0); %Lymphocytes 6.4 % (21.0-51.0); %Monocytes 11.5 % (0.0-10.0); %Neutrophils 79.9 % (42.0-75.0); Hemoglobin 12.6 g/dL (12.0-16.0); Mean Corpuscular HGB CONC 32.9 g/dL (32.0-36.0); Platelet Count 95 thou/uL (130-400); RBC Distribution Width 13.5 % (11.5-14.5); Red Blood Cell (RBC) Count 3.81 mill/uL (4.20-5.40); White Blood Cell (WBC) Count 5.8 thou/uL (4.8-10.8)
[2022-05-11 06:07] LABS: ALT (SGPT) 97 U/L (8-55); AST (SGOT) 180 U/L (5-34); Albumin 2.5 g/dL (3.4-4.8); Alkaline Phosphatase 357 U/L (40-110); Anion Gap 13 mmol/L (10-20); BUN (Urea Nitrogen) 7 mg/dL (9.8-20.1); Bilirubin, Total 1.4 mg/dL (0.2-1.2); Calc. Creatinine Clearance 80 mL/min (70-130); Calcium 8.5 mg/dL (7.8-10.44); Carbon Dioxide 28 mmol/L (23-31); Chloride 94 mmol/L (98-107); Estimated GFR 100; Glucose 115 mg/dL (80-115); Magnesium 1.7 mg/dL (1.6-2.6); Phosphorus 2.6 mg/dL (2.3-4.7); Potassium 3.8 mmol/L (3.5-5.1); Protein, Total 5.5 g/dL (5.8-8.1); Sodium 131 mmol/L (136-145)
[2022-05-11] MEDS ORDERED: Magnesium 2 GM/50 ML(in water) 2 GM in Premix Bag 1 BAG IVPB SCH (08:00)
[2022-05-11] MEDS: Magnesium Oxide 250 MG TAB PO SCH ×2 (08:54→20:48)
[2022-05-11] MEDS: Gabapentin 300 MG CAP PO SCH ×3 (08:54→20:48)
[2022-05-11] MEDS: Spironolactone 100 MG TAB PO SCH (08:54)
[2022-05-11] MEDS: Rifaximin 550 MG TAB PO SCH ×2 (08:55→20:48)
[2022-05-11] MEDS: Furosemide 20 MG TAB PO SCH (08:55)
[2022-05-11] MEDS: Morphine 4 MG/ML VIAL SLOW IVP PRN ×2 (11:06→20:49)
[2022-05-11] MEDS: Venlafaxine XR 37.5 MG CAP PO SCH (20:48)
[2022-05-11] MEDS: Mirtazapine 15 MG TAB PO SCH (20:48)
[2022-05-12] MEDS: Morphine 4 MG/ML VIAL SLOW IVP PRN ×2 (01:30→09:01)
[2022-05-12] MEDS: HYDROmorphone 2 MG TAB PO PRN ×2 (04:06→14:58)
[2022-05-12] MEDS: Gabapentin 300 MG CAP PO SCH ×3 (08:50→20:32)
[2022-05-12] MEDS: Magnesium Oxide 250 MG TAB PO SCH ×2 (08:50→20:31)
[2022-05-12] MEDS: Rifaximin 550 MG TAB PO SCH ×2 (08:51→20:33)
[2022-05-12] MEDS: Furosemide 20 MG TAB PO SCH (08:51)
[2022-05-12] MEDS ORDERED: Ondansetron PF 4 MG/2 ML Vial IVP PRN (10:02)
[2022-05-12] MEDS ORDERED: Polyethylene Glycol 3350 17 GM Packet PO PRN (10:05)
[2022-05-12] MEDS ORDERED: Ondansetron PF 4 MG/2 ML Vial IVP SCH (10:15)
[2022-05-12] MEDS ORDERED: Morphine ER 15 MG TAB PO SCH (10:15)
[2022-05-12] MEDS ORDERED: Chloraseptic Spray 180 ml Bottle PO PRN (14:18)
[2022-05-12] MEDS: Aluminum & Magnesium Hydroxide 60 ML, diphenhydrAMINE 150 MG, Lidocaine 2% Viscous Solu... SSW SCH ×2 (17:25→20:31)
[2022-05-12] MEDS: Senokot S 8.6-50 MG TAB PO SCH (20:33)
[2022-05-12] MEDS: Venlafaxine XR 37.5 MG CAP PO SCH (20:33)
[2022-05-12] MEDS: Morphine ER 15 MG TAB PO SCH (20:33)
[2022-05-12] MEDS: Mirtazapine 15 MG TAB PO SCH (20:33)
[2022-05-12] MEDS: Ondansetron PF 4 MG/2 ML Vial IVP PRN (22:23)
[2022-05-13] MEDS: HYDROmorphone 2 MG TAB PO PRN (00:02)
[2022-05-13] MEDS: Magnesium Oxide 250 MG TAB PO SCH ×2 (08:56→20:24)
[2022-05-13] MEDS: Morphine ER 15 MG TAB PO SCH ×2 (08:56→20:23)
[2022-05-13] MEDS: Polyethylene Glycol 3350 17 GM Packet PO SCH (08:56)
[2022-05-13] MEDS: Senokot S 8.6-50 MG TAB PO SCH ×2 (08:58→20:24)
[2022-05-13] MEDS: Furosemide 20 MG TAB PO SCH (08:59)
[2022-05-13] MEDS: Gabapentin 300 MG CAP PO SCH ×3 (08:59→20:22)
[2022-05-13] MEDS: Rifaximin 550 MG TAB PO SCH ×2 (08:59→20:24)
[2022-05-13] MEDS: Morphine 4 MG/ML VIAL SLOW IVP PRN (09:00)
[2022-05-13] MEDS: Aluminum & Magnesium Hydroxide 60 ML, diphenhydrAMINE 150 MG, Lidocaine 2% Viscous Solu... SSW SCH ×3 (09:16→20:25)
[2022-05-13] MEDS: Venlafaxine XR 37.5 MG CAP PO SCH (20:24)
[2022-05-13] MEDS: Mirtazapine 15 MG TAB PO SCH (20:24)
[2022-05-14] MEDS: Morphine 4 MG/ML VIAL SLOW IVP PRN ×3 (05:08→22:32)
[2022-05-14] MEDS: Ondansetron PF 4 MG/2 ML Vial IVP PRN (05:08)
[2022-05-14] MEDS: Aluminum & Magnesium Hydroxide 60 ML, diphenhydrAMINE 150 MG, Lidocaine 2% Viscous Solu... SSW SCH ×4 (08:22→21:14)
[2022-05-14] MEDS: Morphine ER 15 MG TAB PO SCH ×2 (09:00→21:02)
[2022-05-14] MEDS: Rifaximin 550 MG TAB PO SCH (09:44)
[2022-05-14] MEDS: Magnesium Oxide 250 MG TAB PO SCH ×2 (09:44→21:13)
[2022-05-14] MEDS: Senokot S 8.6-50 MG TAB PO SCH ×2 (09:44→21:13)
[2022-05-14] MEDS: Gabapentin 300 MG CAP PO SCH ×3 (09:45→21:13)
[2022-05-14] MEDS: Spironolactone 100 MG TAB PO SCH (09:45)
[2022-05-14] MEDS: Furosemide 20 MG TAB PO SCH (09:45)
[2022-05-14] MEDS: Polyethylene Glycol 3350 17 GM Packet PO SCH (09:46)
[2022-05-14 09:58] LABS: #Basophils 0.1 thou/uL (0.0-0.2); #Eosinphils 0.1 thou/uL (0.0-0.7); #Lymphocytes 0.4 thou/uL (1.20-3.40); #Monocytes 0.7 thou/uL (0.11-0.59); #Neutrophils 5.5 thou/uL (1.40-6.50); %Basophils 1.6 % (0.0-1.0); %Eosinophils 1.3 % (0.0-10.0); %Lymphocytes 5.2 % (21.0-51.0); %Monocytes 10.8 % (0.0-10.0); %Neutrophils 81.1 % (42.0-75.0); Hemoglobin 13.2 g/dL (12.0-16.0); Mean Corpuscular HGB CONC 32.9 g/dL (32.0-36.0); Mean Corpuscular Hemoglobin 33.2 pg (27.0-31.0); Mean Platelet Volume 9.4 fL (7.4-10.4); Platelet Count 93 thou/uL (130-400); RBC Distribution Width 13.5 % (11.5-14.5); Red Blood Cell (RBC) Count 3.98 mill/uL (4.20-5.40); White Blood Cell (WBC) Count 6.8 thou/uL (4.8-10.8)
[2022-05-14] MEDS: Cepastat Lozenges 1 LOZ PO PRN (09:59)
[2022-05-14 10:06] LABS: INR-International Normal Ratio 1.3; Prothrombin Time 16.1 sec (12.0-14.7)
[2022-05-14 10:11] LABS: ALT (SGPT) 107 U/L (8-55); AST (SGOT) 193 U/L (5-34); Albumin 2.8 g/dL (3.4-4.8); Alkaline Phosphatase 359 U/L (40-110); Anion Gap 14 mmol/L (10-20); BUN (Urea Nitrogen) 12 mg/dL (9.8-20.1); Bilirubin, Total 1.9 mg/dL (0.2-1.2); Calc. Creatinine Clearance 89 mL/min (70-130); Calcium 8.7 mg/dL (7.8-10.44); Carbon Dioxide 28 mmol/L (23-31); Chloride 91 mmol/L (98-107); Estimated GFR 99; Globulin 2.9 g/dL (2.4-3.5); Glucose 117 mg/dL (80-115); Potassium 4.1 mmol/L (3.5-5.1); Protein, Total 5.7 g/dL (5.8-8.1); Sodium 129 mmol/L (136-145)
[2022-05-14 10:45] VITALS: BMI 24.3
[2022-05-14] MEDS: HYDROmorphone 2 MG TAB PO PRN (21:11)
[2022-05-14] MEDS: Mirtazapine 15 MG TAB PO SCH (21:13)
[2022-05-14] MEDS: Venlafaxine XR 37.5 MG CAP PO SCH (21:13)
[2022-05-15] MEDS: HYDROmorphone 2 MG TAB PO PRN ×2 (03:16→22:14)
[2022-05-15] MEDS: Hyoscyamine Sulfate SL 0.125 mg Tablet PO PRN (03:18)
[2022-05-15] MEDS: Morphine 4 MG/ML VIAL SLOW IVP PRN (04:31)
[2022-05-15 06:55] LABS: #Basophils 0.1 thou/uL (0.0-0.2); #Eosinphils 0.1 thou/uL (0.0-0.7); #Lymphocytes 0.4 thou/uL (1.20-3.40); #Monocytes 0.9 thou/uL (0.11-0.59); #Neutrophils 5.8 thou/uL (1.40-6.50); %Basophils 0.8 % (0.0-1.0); %Eosinophils 1.4 % (0.0-10.0); %Monocytes 12.9 % (0.0-10.0); %Neutrophils 79.9 % (42.0-75.0); Hemoglobin 13.5 g/dL (12.0-16.0); Mean Corpuscular HGB CONC 33.1 g/dL (32.0-36.0); Mean Corpuscular Hemoglobin 33.2 pg (27.0-31.0); Mean Platelet Volume 9.3 fL (7.4-10.4); Platelet Count 100 thou/uL (130-400); RBC Distribution Width 13.6 % (11.5-14.5); Red Blood Cell (RBC) Count 4.05 mill/uL (4.20-5.40); White Blood Cell (WBC) Count 7.2 thou/uL (4.8-10.8)
[2022-05-15 07:13] LABS: ALT (SGPT) 102 U/L (8-55); AST (SGOT) 192 U/L (5-34); Albumin 2.8 g/dL (3.4-4.8); Alkaline Phosphatase 372 U/L (40-110); Anion Gap 13 mmol/L (10-20); BUN (Urea Nitrogen) 12 mg/dL (9.8-20.1); Calc. Creatinine Clearance 89 mL/min (70-130); Calcium 8.6 mg/dL (7.8-10.44); Carbon Dioxide 29 mmol/L (23-31); Chloride 90 mmol/L (98-107); Estimated GFR 99; Globulin 3.3 g/dL (2.4-3.5); Glucose 108 mg/dL (80-115); Potassium 4.2 mmol/L (3.5-5.1); Protein, Total 6.1 g/dL (5.8-8.1); Sodium 128 mmol/L (136-145)
[2022-05-15] MEDS ORDERED: Morphine 2 MG/ML VIAL SLOW IVP PRN (07:44)
[2022-05-15] MEDS: Furosemide 20 MG TAB PO SCH (08:52)
[2022-05-15] MEDS: Senokot S 8.6-50 MG TAB PO SCH ×2 (08:52→20:07)
[2022-05-15] MEDS: Magnesium Oxide 250 MG TAB PO SCH ×2 (08:52→20:06)
[2022-05-15] MEDS: Rifaximin 550 MG TAB PO SCH ×2 (08:52→20:06)
[2022-05-15] MEDS: Gabapentin 300 MG CAP PO SCH ×3 (08:53→20:05)
[2022-05-15] MEDS: Morphine ER 15 MG TAB PO SCH ×2 (08:53→20:06)
[2022-05-15] MEDS: Aluminum & Magnesium Hydroxide 60 ML, diphenhydrAMINE 150 MG, Lidocaine 2% Viscous Solu... SSW SCH ×4 (08:54→19:57)
[2022-05-15] MEDS: Polyethylene Glycol 3350 17 GM Packet PO SCH (08:54)
[2022-05-15] MEDS: Mirtazapine 15 MG TAB PO SCH (20:06)
[2022-05-15] MEDS: Venlafaxine XR 37.5 MG CAP PO SCH (20:06)
[2022-05-16] MEDS: Aluminum & Magnesium Hydroxide 60 ML, diphenhydrAMINE 150 MG, Lidocaine 2% Viscous Solu... SSW SCH ×4 (08:36→20:28)
[2022-05-16] MEDS: Polyethylene Glycol 3350 17 GM Packet PO SCH (08:36)
[2022-05-16] MEDS: Magnesium Oxide 250 MG TAB PO SCH ×2 (08:37→20:20)
[2022-05-16] MEDS: Furosemide 20 MG TAB PO SCH (08:37)
[2022-05-16] MEDS: Rifaximin 550 MG TAB PO SCH ×2 (08:38→20:21)
[2022-05-16] MEDS: Gabapentin 300 MG CAP PO SCH ×3 (08:38→20:20)
[2022-05-16] MEDS: Spironolactone 100 MG TAB PO SCH (08:39)
[2022-05-16] MEDS: Morphine ER 15 MG TAB PO SCH ×2 (08:39→20:21)
[2022-05-16] MEDS: Senokot S 8.6-50 MG TAB PO SCH ×2 (08:55→20:21)
[2022-05-16 09:00] LABS: ALT (SGPT) 104 U/L (8-55); AST (SGOT) 198 U/L (5-34); Albumin 2.8 g/dL (3.4-4.8); Alkaline Phosphatase 390 U/L (40-110); Anion Gap 17 mmol/L (10-20); BUN (Urea Nitrogen) 13 mg/dL (9.8-20.1); Bilirubin, Total 2.3 mg/dL (0.2-1.2); Calc. Creatinine Clearance 82 mL/min (70-130); Calcium 8.9 mg/dL (7.8-10.44); Carbon Dioxide 29 mmol/L (23-31); Chloride 88 mmol/L (98-107); Estimated GFR 95; Globulin 3.6 g/dL (2.4-3.5); Glucose 117 mg/dL (80-115); Potassium 4.6 mmol/L (3.5-5.1); Protein, Total 6.4 g/dL (5.8-8.1); Sodium 129 mmol/L (136-145)
[2022-05-16] MEDS: HYDROmorphone 2 MG TAB PO PRN (11:49)
[2022-05-16] MEDS: Morphine 4 MG/ML VIAL SLOW IVP PRN (15:19)
[2022-05-16] MEDS: Venlafaxine XR 37.5 MG CAP PO SCH (20:20)
[2022-05-16] MEDS: Mirtazapine 15 MG TAB PO SCH (20:21)
[2022-05-17] MEDS: Morphine 4 MG/ML VIAL SLOW IVP PRN ×2 (05:52→12:21)
[2022-05-17 07:20] LABS: ALT (SGPT) 100 U/L (8-55); AST (SGOT) 194 U/L (5-34); Albumin 2.7 g/dL (3.4-4.8); Alkaline Phosphatase 381 U/L (40-110); Anion Gap 19 mmol/L (10-20); BUN (Urea Nitrogen) 13 mg/dL (9.8-20.1); Bilirubin, Total 2.3 mg/dL (0.2-1.2); Calc. Creatinine Clearance 86 mL/min (70-130); Carbon Dioxide 24 mmol/L (23-31); Chloride 88 mmol/L (98-107); Estimated GFR 98; Glucose 105 mg/dL (80-115); Potassium 5.3 mmol/L (3.5-5.1); Protein, Total 6.7 g/dL (5.8-8.1); Sodium 126 mmol/L (136-145)
[2022-05-17] MEDS: Aluminum & Magnesium Hydroxide 60 ML, diphenhydrAMINE 150 MG, Lidocaine 2% Viscous Solu... SSW SCH (08:15)
[2022-05-17] MEDS: Morphine ER 15 MG TAB PO SCH ×2 (08:16→21:31)
[2022-05-17] MEDS: Polyethylene Glycol 3350 17 GM Packet PO SCH (08:16)
[2022-05-17] MEDS: Gabapentin 300 MG CAP PO SCH ×3 (08:17→21:30)
[2022-05-17] MEDS: Senokot S 8.6-50 MG TAB PO SCH ×2 (08:17→21:30)
[2022-05-17] MEDS: Rifaximin 550 MG TAB PO SCH ×2 (08:18→21:30)
[2022-05-17] MEDS: Magnesium Oxide 250 MG TAB PO SCH ×2 (08:18→21:31)
[2022-05-17 08:31] LABS: #Eosinphils 0.1 thou/uL (0.0-0.7); #Lymphocytes 0.7 thou/uL (1.20-3.40); #Monocytes 1.3 thou/uL (0.11-0.59); #Neutrophils 10.1 thou/uL (1.40-6.50); %Basophils 0.1 % (0.0-1.0); %Eosinophils 1.1 % (0.0-10.0); %Monocytes 10.4 % (0.0-10.0); %Neutrophils 82.4 % (42.0-75.0); Band 19 % (5-11); Eosinophils 3 % (0-10); Hemoglobin 13.9 g/dL (12.0-16.0); Lymphocytes 11 % (21-51); MDiff Complete? YES; Mean Corpuscular HGB CONC 34.7 g/dL (32.0-36.0); Mean Platelet Volume 10.2 fL (7.4-10.4); Monocytes 4 % (0-10); Neutrophil 62 % (42-75); Platelet Count 107 thou/uL (130-400); Platelet Morphology Comment Appears Decreased; RBC Distribution Width 14.1 % (11.5-14.5); RBC Morphology Normal; Reactive Lymphocytes 1 % (0-10); Red Blood Cell (RBC) Count 3.96 mill/uL (4.20-5.40); White Blood Cell (WBC) Count 12.3 thou/uL (4.8-10.8)
[2022-05-17] MEDS: HYDROmorphone 2 MG TAB PO PRN (15:31)
[2022-05-17] MEDS: Cepastat Lozenges 1 LOZ PO PRN (17:22)
[2022-05-17] MEDS: Mirtazapine 15 MG TAB PO SCH (21:31)
[2022-05-17] MEDS: Venlafaxine XR 37.5 MG CAP PO SCH (21:33)
[2022-05-18] MEDS: Morphine 4 MG/ML VIAL SLOW IVP PRN
[2022-05-18] MEDS: HYDROmorphone 2 MG TAB PO PRN ×2 (02:02→22:34)
[2022-05-18 07:00] LABS: Hemoglobin 14.2 g/dL (12.0-16.0); Mean Corpuscular HGB CONC 33.9 g/dL (32.0-36.0); Mean Corpuscular Hemoglobin 34.6 pg (27.0-31.0); Mean Platelet Volume 9.8 fL (7.4-10.4); Platelet Count 89 thou/uL (130-400)
[2022-05-18] MEDS ORDERED: Piperacillin/Tazobactam 3.375 GM in Sodium Chloride 0.9% 100 ML IVPB SCH (08:00)
[2022-05-18 08:16] LABS: Albumin 2.7 g/dL (3.4-4.8)
[2022-05-18 08:17] LABS: Chloride 88 mmol/L (98-107); Potassium 4.7 mmol/L (3.5-5.1); Sodium 124 mmol/L (136-145)
[2022-05-18 08:19] LABS: Globulin 3.5 g/dL (2.4-3.5); Glucose 104 mg/dL (80-115); Protein, Total 6.2 g/dL (5.8-8.1)
[2022-05-18 08:20] LABS: Anion Gap 17 mmol/L (10-20); Carbon Dioxide 24 mmol/L (23-31)
[2022-05-18 08:21] LABS: Bilirubin, Total 2.5 mg/dL (0.2-1.2)
[2022-05-18 08:22] LABS: Alkaline Phosphatase 361 U/L (40-110); Calc. Creatinine Clearance 96 mL/min (70-130); Estimated GFR 100
[2022-05-18 08:23] LABS: BUN (Urea Nitrogen) 12 mg/dL (9.8-20.1)
[2022-05-18 08:24] LABS: AST (SGOT) 172 U/L (5-34)
[2022-05-18 08:25] LABS: ALT (SGPT) 93 U/L (8-55)
[2022-05-18 08:37] LABS: Band 12 % (5-11); Eosinophils 1 % (0-10); Lymphocytes 14 % (21-51); MDiff Complete? YES; Monocytes 10 % (0-10); Neutrophil 63 % (42-75); Platelet Morphology Comment Appears Decreased; RBC Morphology Normal
[2022-05-18] MEDS: Polyethylene Glycol 3350 17 GM Packet PO SCH (08:49)
[2022-05-18] MEDS: Gabapentin 300 MG CAP PO SCH ×3 (08:51→20:37)
[2022-05-18] MEDS: Rifaximin 550 MG TAB PO SCH ×2 (08:51→20:50)
[2022-05-18] MEDS: Magnesium Oxide 250 MG TAB PO SCH ×2 (08:51→20:38)
[2022-05-18] MEDS: Senokot S 8.6-50 MG TAB PO SCH ×2 (08:51→20:41)
[2022-05-18] MEDS: Morphine ER 15 MG TAB PO SCH ×2 (08:51→20:41)
[2022-05-18] MEDS ORDERED: Ondansetron PF 4 MG/2 ML Vial IVP PRN (12:21)
[2022-05-18] MEDS: Piperacillin/Tazobactam 3.375 GM in Sodium Chloride 0.9% 100 ML IVPB SCH ×2 (13:22→20:36)
[2022-05-18] MEDS ORDERED: Lidocaine 1% MPF 2 ML VIAL ONE (13:55)
[2022-05-18] MEDS ORDERED: Sodium Bicarbonate 2.5 MEQ/5 ML VIAL ONE (13:55)
[2022-05-18 16:31] LABS: Fluid, LDH 41 U/L (Not Available); Fluid, Protein Less than 1.0 g/dL (Not Available)
[2022-05-18 17:05] LABS: RBC Count-Automated (BF) 707 /cu.mm; WBC/Nucleated-Auto (BF) 1277 /cu.mm
[2022-05-18 17:16] LABS: BF Color Yellow; Body Fluid Source Peritoneal Fluid; Clarity Hazy (Clear); Tube # EDTA
[2022-05-18 17:18] LABS: BF Segmented Neutrophils 56 %; Cell Count Non Hematic 43 %; Lymphocytes 1 %
[2022-05-18] MEDS: Albumin 25% 25 GM/100 ML BOT IVPB SCH (20:33)
[2022-05-18] MEDS: Mirtazapine 15 MG TAB PO SCH (20:39)
[2022-05-18] MEDS: Venlafaxine XR 37.5 MG CAP PO SCH (20:40)
[2022-05-18] MEDS ORDERED: Furosemide 40 MG/4 ML VIAL SLOW IVP SCH (21:00)
[2022-05-19] MEDS: Albumin 25% 25 GM/100 ML BOT IVPB SCH ×5 (01:07→23:25)
[2022-05-19] MEDS: Morphine 4 MG/ML VIAL SLOW IVP PRN ×2 (04:34→17:05)
[2022-05-19] MEDS: Piperacillin/Tazobactam 3.375 GM in Sodium Chloride 0.9% 100 ML IVPB SCH ×3 (05:26→20:40)
[2022-05-19 07:26] LABS: ALT (SGPT) 73 U/L (8-55); AST (SGOT) 143 U/L (5-34); Albumin 3.2 g/dL (3.4-4.8); Alkaline Phosphatase 302 U/L (40-110); Anion Gap 19 mmol/L (10-20); BUN (Urea Nitrogen) 11 mg/dL (9.8-20.1); Bilirubin, Total 2.8 mg/dL (0.2-1.2); Calc. Creatinine Clearance 85 mL/min (70-130); Carbon Dioxide 26 mmol/L (23-31); Chloride 90 mmol/L (98-107); Estimated GFR 97; Globulin 2.8 g/dL (2.4-3.5); Glucose 91 mg/dL (80-115); Potassium 3.5 mmol/L (3.5-5.1); Sodium 131 mmol/L (136-145)
[2022-05-19] MEDS: Gabapentin 300 MG CAP PO SCH ×3 (08:18→20:39)
[2022-05-19] MEDS: Rifaximin 550 MG TAB PO SCH ×2 (08:18→20:39)
[2022-05-19] MEDS: Senokot S 8.6-50 MG TAB PO SCH ×2 (08:18→20:39)
[2022-05-19] MEDS: Magnesium Oxide 250 MG TAB PO SCH ×2 (08:18→20:43)
[2022-05-19] MEDS: Polyethylene Glycol 3350 17 GM Packet PO SCH (08:19)
[2022-05-19] MEDS: Morphine ER 15 MG TAB PO SCH ×2 (08:33→20:37)
[2022-05-19 08:51] LABS: Band 1 % (5-11); Eosinophils 2 % (0-10); Hemoglobin 12.4 g/dL (12.0-16.0); Lymphocytes 3 % (21-51); MDiff Complete? YES; Mean Corpuscular HGB CONC 33.2 g/dL (32.0-36.0); Mean Corpuscular Hemoglobin 34.1 pg (27.0-31.0); Mean Platelet Volume 10.1 fL (7.4-10.4); Monocytes 17 % (0-10); Neutrophil 76 % (42-75); Nucleated RBC 1 % (0); Platelet Count 90 thou/uL (130-400); Platelet Morphology Comment Appears Decreased; RBC Distribution Width 14.2 % (11.5-14.5); Red Blood Cell (RBC) Count 3.65 mill/uL (4.20-5.40); Target Cells SLIGHT = 2-5 cells (100X) (0-1/hpf); White Blood Cell (WBC) Count 6.4 thou/uL (4.8-10.8)
[2022-05-19] MEDS ORDERED: Furosemide 40 MG TAB PO SCH (09:00)
[2022-05-19] MEDS ORDERED: Furosemide 20 MG TAB PO SCH (09:00)
[2022-05-19] MEDS ORDERED: Furosemide 40 MG/4 ML VIAL SLOW IVP SCH (09:00)
[2022-05-19] MEDS: HYDROmorphone 2 MG TAB PO PRN (11:52)
[2022-05-19] MEDS ORDERED: Potassium Chloride 20 MEQ TAB PO SCH (12:30)
[2022-05-19] MEDS: Venlafaxine XR 37.5 MG CAP PO SCH (20:39)
[2022-05-19] MEDS: Mirtazapine 15 MG TAB PO SCH (20:39)
[2022-05-20] MEDS: Piperacillin/Tazobactam 3.375 GM in Sodium Chloride 0.9% 100 ML IVPB SCH ×3 (03:20→20:02)
[2022-05-20] MEDS: HYDROmorphone 2 MG TAB PO PRN ×2 (04:46→12:38)
[2022-05-20 06:38] LABS: #Eosinphils 0.1 thou/uL (0.0-0.7); #Lymphocytes 0.4 thou/uL (1.20-3.40); #Monocytes 0.4 thou/uL (0.11-0.59); #Neutrophils 3.1 thou/uL (1.40-6.50); %Eosinophils 3.3 % (0.0-10.0); %Lymphocytes 9.1 % (21.0-51.0); %Monocytes 9.8 % (0.0-10.0); %Neutrophils 77.7 % (42.0-75.0); Hemoglobin 11.5 g/dL (12.0-16.0); Mean Corpuscular HGB CONC 32.9 g/dL (32.0-36.0); Mean Corpuscular Hemoglobin 33.5 pg (27.0-31.0); Mean Platelet Volume 9.6 fL (7.4-10.4); Platelet Count 88 thou/uL (130-400); RBC Distribution Width 14.4 % (11.5-14.5); Red Blood Cell (RBC) Count 3.43 mill/uL (4.20-5.40)
[2022-05-20 06:57] LABS: ALT (SGPT) 53 U/L (8-55); AST (SGOT) 107 U/L (5-34); Albumin 3.5 g/dL (3.4-4.8); Alkaline Phosphatase 224 U/L (40-110); Anion Gap 17 mmol/L (10-20); BUN (Urea Nitrogen) 11 mg/dL (9.8-20.1); Bilirubin, Total 2.8 mg/dL (0.2-1.2); Calc. Creatinine Clearance 86 mL/min (70-130); Calcium 8.8 mg/dL (7.8-10.44); Carbon Dioxide 28 mmol/L (23-31); Chloride 92 mmol/L (98-107); Estimated GFR 98; Globulin 2.1 g/dL (2.4-3.5); Glucose 94 mg/dL (80-115); Protein, Total 5.6 g/dL (5.8-8.1); Sodium 134 mmol/L (136-145)
[2022-05-20] MEDS ORDERED: Potassium Chloride 20 MEQ TAB PO SCH (08:00)
[2022-05-20] MEDS: Albumin 25% 25 GM/100 ML BOT IVPB SCH ×3 (08:00→17:34)
[2022-05-20] MEDS ORDERED: Furosemide 40 MG/4 ML VIAL SLOW IVP SCH (09:00)
[2022-05-20] MEDS: Gabapentin 300 MG CAP PO SCH ×3 (09:30→20:02)
[2022-05-20] MEDS: Polyethylene Glycol 3350 17 GM Packet PO SCH (09:30)
[2022-05-20] MEDS: Magnesium Oxide 250 MG TAB PO SCH ×2 (09:32→20:03)
[2022-05-20] MEDS: Senokot S 8.6-50 MG TAB PO SCH ×2 (09:33→20:03)
[2022-05-20] MEDS: Morphine ER 15 MG TAB PO SCH ×2 (09:33→20:02)
[2022-05-20] MEDS: Rifaximin 550 MG TAB PO SCH ×2 (09:33→20:03)
[2022-05-20] MEDS: Venlafaxine XR 37.5 MG CAP PO SCH (20:03)
[2022-05-20] MEDS: Mirtazapine 15 MG TAB PO SCH (20:03)
[2022-05-21] MEDS: HYDROmorphone 2 MG TAB PO PRN ×2 (04:16→11:14)
[2022-05-21] MEDS: Piperacillin/Tazobactam 3.375 GM in Sodium Chloride 0.9% 100 ML IVPB SCH (04:19)
[2022-05-21 07:20] LABS: Anion Gap 15 mmol/L (10-20); BUN (Urea Nitrogen) 10 mg/dL (9.8-20.1); Calc. Creatinine Clearance 81 mL/min (70-130); Carbon Dioxide 30 mmol/L (23-31); Chloride 91 mmol/L (98-107); Estimated GFR 94; Glucose 128 mg/dL (80-115); Sodium 133 mmol/L (136-145)
[2022-05-21 07:29] LABS: Potassium 2.8 mmol/L (3.5-5.1)
[2022-05-21] MEDS ORDERED: Potassium Chloride 20 MEQ in Premix Bag 1 BAG IVPB SCH (07:45)
[2022-05-21] MEDS: Morphine ER 15 MG TAB PO SCH (08:40)
[2022-05-21] MEDS: Polyethylene Glycol 3350 17 GM Packet PO SCH (08:42)
[2022-05-21] MEDS: Spironolactone 100 MG TAB PO SCH (08:42)
[2022-05-21] MEDS: Magnesium Oxide 250 MG TAB PO SCH (08:44)
[2022-05-21] MEDS: Gabapentin 300 MG CAP PO SCH (08:44)
[2022-05-21] MEDS: Senokot S 8.6-50 MG TAB PO SCH (08:45)
[2022-05-21] MEDS: Rifaximin 550 MG TAB PO SCH (08:45)
[2022-05-21] MEDS ORDERED: Furosemide 40 MG TAB PO SCH (09:00)
[2022-05-21] MEDS ORDERED: Magnevist 469MG/ML 20 ML VIAL ONE ×2 (09:50)
[2022-05-21 12:09] VITALS: BP 103/68; TEMP 98.8
== END 2022-05-21 12:18 | disposition short-term general hospital (02) | DRG 432 ==
LOC: ERS 12:15 → T4-A 17:47
PROVIDERS: ADMIT Internal Medicine; ATTEND Internal Medicine
PROC: 0W9G3ZZ Drainage of Peritoneal Cavity, Percutaneous Approach (ICD-10-PCS; principal; 2022-05-04)
PROC: 0DJ08ZZ Inspection of Upper Intestinal Tract, Via Natural or Artificial Opening Endoscopic (ICD-10-PCS; 2022-05-04)
PROC: 0W9G3ZZ Drainage of Peritoneal Cavity, Percutaneous Approach (ICD-10-PCS; 2022-05-18)
DX: K70.31 Alcoholic cirrhosis of liver with ascites (principal); E43 Unspecified severe protein-calorie malnutrition; I81 Portal vein thrombosis; C22.0 Liver cell carcinoma; R64 Cachexia; E87.1 Hypo-osmolality and hyponatremia; K76.6 Portal hypertension; Z20.822 Contact with and (suspected) exposure to COVID-19; B18.2 Chronic viral hepatitis C; K21.9 Gastro-esophageal reflux disease without esophagitis; K70.11 Alcoholic hepatitis with ascites; E86.0 Dehydration; R13.12 Dysphagia, oropharyngeal phase; K31.89 Other diseases of stomach and duodenum; E87.6 Hypokalemia; E83.42 Hypomagnesemia; E83.39 Other disorders of phosphorus metabolism; K59.00 Constipation, unspecified; Z88.5 Allergy status to narcotic agent; Z79.899 Other long term (current) drug therapy; Z87.891 Personal history of nicotine dependence; Z90.49 Acquired absence of other specified parts of digestive tract; Z28.311 Partially vaccinated for COVID-19; Z98.890 Other specified postprocedural states; Z68.24 Body mass index [BMI] 24.0-24.9, adult
CPT/HCPCS: 36415; 49083; 70553; 71260; 72156; 74177; 76705; 80048; 80053; 82105; 82140; 83605; 83615; 83630; 83690; 83735; 84100; 84157; 84443; 85025; 85060; 85610; 85730; 86850; 86900; 86901; 87040; 87070; 87205; 87324; 87449; 89051; 93005; 96374; 96375; 96376; C9113; J1170; J1940; J2270; J2354; J2405; J2543; J2704; J3475; J3480; J3490; J7030; J7050; P9047; Q0162; Q0163; Q9967; U0003; U0005